=== PATIENT | female | born 1950 | race Caucasian/White ===

== ENCOUNTER → 2016-10-13 | Outpatient (CLI) | payer MEDICARE, OTHER | END | disposition disaster alternative care site (69) | LOC: GAMB 01:36 | DX: S69.90XA Unspecified injury of unspecified wrist, hand and finger(s), initial encounter (principal); M43.6 Torticollis; Z88.1 Allergy status to other antibiotic agents; W10.9XXA Fall (on) (from) unspecified stairs and steps, initial encounter | CPT/HCPCS: A0422; A0425; A0427; J2405; J3010 ==